=== PATIENT | male | born 1995 | race Caucasian/White ===

== ENCOUNTER 2023-09-26 01:01 | Emergency (ER) | payer SELFPAY ==
[2023-09-26 01:03] VITALS: BP 183/100
[2023-09-26 01:09] VITALS: BMI 28.1
[2023-09-26] MEDS: NSS 1000 IV ×2 (01:13→01:51)
--- NOTE | 2023-09-26 01:13 | ED.GENMED ---
History of Present Illness
General
Chief Complaint: Abdominal Symptoms
Source: patient
Exam Limitations: none
Time Seen by Provider: 09/26/23 01:03
Travel History
Have you had any contact with someone who has COVID-19?: No
Do you have any symptoms of coronavirus? Fever > 100 degrees, chills, cough, shortness of breath, sore throat, loss of taste or smell, muscle aches, or headache?: No
History of Present Illness
History of Present Illness:
This is a 28 year old male that comes in with c/o vomiting. States that he awoke around 12noon and stats that he started with vomiting.States that about every 20 min he felt he was vomiting. States that the last few times he thought there was blood
in the vomit so he called 911. Patient was given Zofran by EMS and states that he does not feel nauseated any more. States that he does smoke Marijuana and the last time was 4-5 o'clock and his last alcohol was 12midnigh. Denies any fever, chills,
chest pain, SOB, abd pain, diarrhea, headache, dizziness, urinary burning.
Past History
Past History
ED Past Medical History: HTN; Negative Hypercholesterolemia
ED Past Surgical History: None
Social History
Tobacco: Smoker (Cigars)
Alcohol: Daily (1/2 bottle Vodka )
Drug: Marijuana (Daily)
Personal: Single
Living: with family
Review of Systems
Review of Systems
All Other Systems: ROS reviewed and negative except as documented in HPI and ROS
Constitutional: Reports no symptoms; Denies fever or chills
EENT: Reports no symptoms
Respiratory: Reports no symptoms; Denies cough or trouble breathing
Cardiac: Reports no symptoms; Denies chest pain
ABD/GI: Reports nausea, vomiting and other (Thought there was blood in the emesis); Denies abdominal pain or diarrhea
: Reports no symptoms; Denies dysuria, frequency or urgency
Musculoskeletal: Reports no symptoms
Skin: Reports no symptoms
Neurological: Reports no symptoms; Denies dizzy or headache
Psychiatric: Reports no symptoms
Phy Exam
General Physical Exam
General Presentation: no apparent distress
General age: appears stated age
General Skin: warm and dry
General Habitus: normal
General Mental: alert and anxious
General Hydration: dry mucous membranes
ENT Exam
ENT Exam: TM's normal, pharynx normal and neck supple
Eye Exam
Eye Exam: EOMI
Cardiovascular Exam
Cardiovascular Exam: no edema, normal peripheral pulses and tachycardia
Pulmonary Exam
Pulmonary Exam: lungs clear, no respiratory distress, no rales, chest non tender, no crackles, no rhonchi, no wheezing and no cough
Gastrointestinal Exam
Gastrointestinal Exam: normal bowel sounds, non tender, soft, no organomegaly, no pulsatile mass and non distended
Musculoskeletal Exam
Musculoskeletal Exam: full ROM and no edema
Skin Exam
Skin Exam: normal color, warm/dry, no rash and no petechia
Psychiatric Exam
Psychiatric Exam: anxious
Course
Orders/Labs/Results
Orders:
Orders
09/26/23 01:11
0.9% Sodium Chloride 1000 ml [Nss] 1,000 ml IV BOLUS
09/26/23 01:12
Alcohol Urgent
Complete Blood Count/With Diff Urgent
Comprehensive Metabolic Panel Urgent
09/26/23 01:13
0.9% Sodium Chloride 1000 ml [Nss] 1,000 ml IV BOLUS
09/26/23 01:14
Pantoprazole [Protonix IV] 40 mg IV NOW STA
09/26/23 01:17
Ondansetron Injectable [Zofran] 4 mg IV NOW STA
09/26/23 01:18
Ondansetron Injectable [Zofran] 4 mg .ROUTE .STK-MED ONE
09/26/23 01:20
Add On- LAB Urgent
Tests Added?: Alcohol
09/26/23 01:45
Acetaminophen [Tylenol] 1,000 mg PO NOW STA
09/26/23 01:48
0.9% Sodium Chloride 1000 ml [Nss] 1,000 ml IV BOLUS
09/26/23 02:44
Basic Metabolic Panel Urgent
Abnormal Lab Results
09/26/23 09/26/23
01:12 02:44
WBC 22.9 H 10^3/uL
(4.8-10.8)
MCV 96.3 H fL
(80.0-94.0)
MCH 34.4 H pg
(27.0-31.0)
MPV 11.1 H fL
(7.4-10.4)
Abs Immat Gran (auto) 0.2 H 10^3/uL
(0-0.05)
Absolute Neuts (auto) 20.9 H 10^3/uL
(1.4-6.5)
Absolute Lymphs (auto) 0.8 L 10^3/uL
(1.2-3.4)
Absolute Monos (auto) 1.0 H 10^3/uL
(0.1-0.6)
Immature Gran % 0.8 H %
(0-0.5)
Neutrophils % 91.3 H %
(42.2-75.2)
Lymphocytes % 3.4 L %
(20.5-51.1)
Carbon Dioxide 12 L* mmol/L 15 L mmol/L
(22-30) (22-30)
Glucose 183 H mg/dl 150 H mg/dl
(70-99) (70-99)
Calcium 8.3 L D mg/dl
(8.4-10.2)
AST 123 H U/L
(17-59)
ALT 127 H U/L
(0-50)
Total Protein 8.8 H g/dl
(6.3-8.2)
Albumin 5.4 H g/dl
(3.5-5.0)
09/26/23 01:12
09/26/23 02:44
Leukocytosis, Carbon dioxide very low. Glucose nonfasting. Anion gap 26, AST/ALT elevation. total protein elevated. Albumin slightly elevated.
Carbon dioxide has improved after 2 liters of fluid, Glucose has come down. Anion gap is now 14, ALCOHOL NONE DETECTED.
Vital Signs
Initial and Last Documented VS:
Initial Vital Signs
Temp Pulse Resp BP Pulse Ox
97.6 F 123 18 183/100 96
09/26/23 01:03 09/26/23 01:03 09/26/23 01:03 09/26/23 01:03 09/26/23 01:03
Last Documented Vital Signs
Temp Pulse Resp BP Pulse Ox
97.6 F 126 24 159/94 97
09/26/23 01:03 09/26/23 04:00 09/26/23 04:00 09/26/23 04:00 09/26/23 01:37
MDM/Problems Addressed
Differential Diagnosis Includes:
Viral syndrome, esophageal varices, Alcoholic gastritis
MDM/Problems Addressed:
This is a 28 year old male that is brought in by ambulance with c/o vomiting. States that he started vomiting [id number] noon on Tuesday. States that he did smoke Marijuana and he was drinking. [place] that the last time he vomited he thought there was
blood there.
Will check labs, Give IV fluids, Protonix.
back nto see patient. Patient states that he is feeling much better. Explained to patient that her really needs help to stop his drinking. Will give patient a prescription for Protonix to help with any Gastrointestinal irritation from the alcohol.
Encouraged patient to increase his water intake to 8-8oz glasses daily and will also give patient a prescription for Zofran to help with any nausea, vomiting. Patient to follow up with the PCP. Return with any concerns
Chronic conditions affecting care:
NA
Acute Exacerbation and/or Progression of Chronic Illness:
NA
*Pulse Oximetry
Patient hypoxic: no
*EKG
Interpreted by ED Provider?: NA
Rate: EKG- N/A
*Check Clerk Interpretation
Rate: tachycardiac
Heart Rate: 122
Rhythm: sinus tachycardia
*Critical Care Note
Total Time (30-74mins, 75-104mins- exclusive of procedures): Not Applicable
ED Attending Note
-
Portions of this chart may have been created with voice recognition software.� Occasional wrong word or��sound alike� substitutions may have occurred due to the inherent limitations of voice recognition software.
Discharge Plan
Departure
Patient Disposition: Home (Routine Discharge)
Date of Disposition: 09/26/23
Time of Disposition: 03:57
Patient with high blood pressure during this ER visit?: Yes
Condition: Good
Covid-19: Not Applicable
Discharge Problem:
Nausea and vomiting
Instructions: Nausea and Vomiting, Adult (DC), BLOOD PRESSURE
Prescriptions:
New
pantoprazole [Protonix] 40 mg tablet,delayed release (DR/EC)
40 mg PO DAILY Qty: 15 0RF
ondansetron 4 mg tablet,disintegrating
4 mg PO Q8H PRN (Reason: nausea and vomiting) Qty: 10 0RF
Referrals:
NONE,* [Family Provider] -
Activity Restrictions/Additional Instructions:
As discussed, your blood work shows an elevation of the WBC. This is most likely due to dehydration and the stress of all the vomiting. Your liver enzymes are also significantly elevated due to your alcohol intake. YOU REALLY NEED TO GET HELP TO
STOP DRINKING SO YOU DON'T END UP IN LIVER FAILURE. Please follow up with the family doctor for recheck. YOU HAVE HAD 2 PRESCRIPTIONS SENT TO YOUR PHARMACY. THE ZOFRAN IS FOR NAUSEA AND THE PROTONIX WILL HELP COAT THE STOMACH. Please increase your
water intake to 8-8oz glasses daily. IF YOU HAVE ANY OTHER CONCERNS PLEASE RETURN TO THE EMERGENCY ROOM .
Interventions
Interventions:
*Risk Screen - Suicide Last Done: 09/26/23 01:03
*General Assessment Last Done: 09/26/23 01:03
*Neglect/Abuse Screening Last Done: 09/26/23 01:03
*ED COVID-19 Vaccine History Last Done: 09/26/23 01:03
DL-Goqlcj-Ktasiwvift Assessment Last Done: 09/26/23 01:10
[2023-09-26] MEDS: ZOFRAN 4 MG IV (01:20)
[2023-09-26 01:21] LABS: % Basophils 0.3 % (0-2); % Immature Granulocytes 0.8 % (0-0.5); % Lymphocytes 3.4 % (20.5-51.1); % Monocytes 4.2 % (1.7-9.3); % Neutrophils 91.3 % (42.2-75.2); Absolute Basophils 0.1 10^3/uL (0-0.2); Absolute Immature Granulocytes 0.2 10^3/uL (0-0.05); Absolute Lymphocytes 0.8 10^3/uL (1.2-3.4); Absolute Neutrophils 20.9 10^3/uL (1.4-6.5); Hematocrit 46.8 % (39.0-52.0); Hemoglobin 16.7 g/dL (13.0-18.0); Mean Corp Hgb Conc. 35.7 g/dL (33.0-37.0); Mean Corpuscular Hgb 34.4 pg (27.0-31.0); Mean Corpuscular Volume 96.3 fL (80.0-94.0); Mean Platelet Volume 11.1 fL (7.4-10.4); Nucleated Red Blood Cells % 0 % (-); Platelet Count 290 10^3/uL (130-400); Red Blood Cell Count 4.86 10^6/uL (4.70-6.10); Red Cell Dist. Width 11.9 % (11.5-14.5); White Blood Cell Count 22.9 10^3/uL (4.8-10.8)
[2023-09-26] MEDS: PROTONIX IV 40 MG IV (01:22)
--- NOTE | 2023-09-26 01:26 | EDRN ---
Pt clarified his last alcohol intake was midnight 25.5 hours ago. Pt says he has been drinking heavily since he was 22 years old. Pt has sought help for alcohol abuse in the past however he is not interested in help now. Pt is tremulous, states
he has been through alcohol detox previously and this is not it. Pt was dry heaving, given additional IV zofran and protonix. Pt given an ice cube to wet his mouth.
[2023-09-26 01:37] LABS: ALT (SGPT) 127 U/L (0-50); AST (SGOT) 123 U/L (17-59); Albumin 5.4 g/dl (3.5-5.0); Alkaline Phosphatase 104 U/L (38-126); Blood Urea Nitrogen 11 mg/dl (9-20); Carbon Dioxide 12 mmol/L (22-30); Chloride 101 mmol/L (98-107); Estimated Creatinine Clearance > 125 ml/min; Glucose 183 mg/dl (70-99); Potassium 4.6 mmol/L (3.5-5.1); Sodium 139 mmol/L (135-145); Total Bilirubin 1.2 mg/dl (0.2-1.3); Total Protein 8.8 g/dl (6.3-8.2); eGFR > 60.00
[2023-09-26] MEDS: TYLENOL 1000 MG PO (01:48)
[2023-09-26 01:58] LABS: Alcohol None Detected
[2023-09-26 02:00] VITALS: BP 159/93
[2023-09-26 03:00] VITALS: BP 141/86
[2023-09-26 03:11] LABS: Blood Urea Nitrogen 11 mg/dl (9-20); Calcium 8.3 mg/dl (8.4-10.2); Carbon Dioxide 15 mmol/L (22-30); Chloride 107 mmol/L (98-107); Estimated Creatinine Clearance > 125 ml/min; Glucose 150 mg/dl (70-99); Potassium 4.7 mmol/L (3.5-5.1); Sodium 136 mmol/L (135-145); eGFR > 60.00
[2023-09-26 04:00] VITALS: BP 159/94
== END 2023-09-26 04:12 | disposition home or self-care (01) ==
LOC: EMR 01:01
PROVIDERS: Clinical Nurse Specialist Family Health; EMERGENCY PHYSICIAN Emergency Medicine
DX: R11.2 Nausea with vomiting, unspecified (principal); I10 Essential (primary) hypertension; F17.290 Nicotine dependence, other tobacco product, uncomplicated
CPT/HCPCS: 99283; 96374; 96375; 96361; 80048; 80053; 82077; 85025

== ENCOUNTER 2024-01-12 09:13 | Emergency (ER) | payer SELFPAY ==
[2024-01-12 09:18] VITALS: BP 188/122
--- NOTE | 2024-01-12 09:39 | ED.GENMED ---
History of Present Illness
General
Chief Complaint: Withdrawal Symptoms
Time Seen by Provider: 01/12/24 09:27
Travel History
Have you had any contact with someone who has COVID-19?: No
Do you have any symptoms of coronavirus? Fever > 100 degrees, chills, cough, shortness of breath, sore throat, loss of taste or smell, muscle aches, or headache?: No
History of Present Illness
History of Present Illness:
28-year-old male with history of hypertension and alcohol abuse presents to the emergency department for evaluation of alcohol withdrawal. His last drink was yesterday morning roughly 24 hours prior to presentation. He states that he was
attempting to be admitted to [facility] due to past history with them, states they advised him to seek emergency medical evaluation for medical clearance. He reports tremors and diaphoresis as well as tactile skin disturbances.
Denies any history of alcohol withdrawal seizures. His last period of extended sobriety was greater than 1 year ago. Denies any other substance abuse.
Past History
Past History
ED Past Medical History: HTN; Negative Hypercholesterolemia
ED Past Surgical History: None
Social History
Tobacco: Smoker (Cigars)
Alcohol: Daily (1/2 bottle Vodka )
Drug: Marijuana (Daily)
Personal: Single
Living: with family
Review of Systems
Review of Systems
Allergies reviewed?: Yes
All Other Systems: ROS reviewed and negative except as documented in HPI and ROS
Phy Exam
Physical Exam
Physical Exam:
GEN: Diaphoretic, tremulous
HEENT: Oral mucosa moist, no scleral icterus
Cardiac: Tachycardic, regular
Lung: No respiratory distress, no tachypnea
MSK: No gross deformity or injuries
Skin: Good color, no pallor or jaundice, no rashes, profound diaphoresis
Neuro: AO x3, moves all extremities freely, generalized tremors at rest
Psych: Calm, cooperative, not responding to internal stimuli, no clear hallucinations
Course
Orders/Labs/Results
Orders:
Orders
01/12/24 09:32
Lactated Ringers [Lr] 1,000 ml IV BOLUS
Lorazepam [Ativan] 2 mg IV NOW STA
01/12/24 09:33
Electrocardiogram (*1) Urgent
Reason for Study: QTc Monitoring
EKG- Treatment ONCE
01/12/24 09:51
Alcohol Urgent
Complete Blood Count/With Diff Urgent
Comprehensive Metabolic Panel Urgent
Magnesium Urgent
01/12/24 10:00
0.9% Sodium Chloride 1000 ml [Nss] 1,000 ml Mvi, Adult [Multivitamin] 10 ml Thiamine Injection 100 mg IV 1,000 mls/hr
01/12/24 11:25
Magnesium Sulfate 2 Gram/50 ml [Magnesium Sulfate] 2 gram in 50 ml IV NOW
Abnormal Lab Results
01/12/24
09:51
WBC 16.6 H 10^3/uL
(4.8-10.8)
MCV 98.6 H fL
(80.0-94.0)
MCH 34.0 H pg
(27.0-31.0)
MPV 10.8 H fL
(7.4-10.4)
Abs Immat Gran (auto) 0.1 H 10^3/uL
(0-0.05)
Absolute Neuts (auto) 14.6 H 10^3/uL
(1.4-6.5)
Absolute Lymphs (auto) 1.1 L 10^3/uL
(1.2-3.4)
Absolute Monos (auto) 0.8 H 10^3/uL
(0.1-0.6)
Immature Gran % 0.7 H %
(0-0.5)
Neutrophils % 87.6 H %
(42.2-75.2)
Lymphocytes % 6.3 L %
(20.5-51.1)
Chloride 95 L mmol/L
(98-107)
Carbon Dioxide 21 L mmol/L
(22-30)
Glucose 128 H mg/dl
(70-99)
Magnesium 1.5 L mg/dl
(1.6-2.3)
AST 87 H U/L
(17-59)
ALT 64 H U/L
(0-50)
Total Protein 8.7 H g/dl
(6.3-8.2)
Albumin 5.4 H g/dl
(3.5-5.0)
01/12/24 09:51
01/12/24 09:51
Vital Signs
Initial and Last Documented VS:
Initial Vital Signs
Temp Pulse Resp BP Pulse Ox
98.8 F 137 18 188/122 100
01/12/24 09:18 01/12/24 09:18 01/12/24 09:18 01/12/24 09:18 01/12/24 09:18
Last Documented Vital Signs
Temp Pulse Resp BP Pulse Ox
98.3 F 103 22 121/86 95
01/12/24 11:19 01/12/24 12:45 01/12/24 12:45 01/12/24 12:45 01/12/24 12:45
MDM/Problems Addressed
MDM/Problems Addressed:
48-year-old male presents in acute alcohol withdrawal. He remained tachycardic and tremulous however is requesting discharge as he plans to sign himself into an inpatient detox and rehab facility in the [facility]. I have educated him that he is high
risk for discharge however he is willing to be discharged without established follow-up, given that he plans to enroll himself in an inpatient facility do not plan to provide him with benzodiazepines for withdrawal symptoms
*Critical Care Note
Total Time (30-74mins, 75-104mins- exclusive of procedures): Not Applicable
ED Attending Note
-
Portions of this chart may have been created with voice recognition software.� Occasional wrong word or��sound alike� substitutions may have occurred due to the inherent limitations of voice recognition software.
Discharge Plan
Departure
Patient Disposition: Home (Routine Discharge)
Date of Disposition: 01/12/24
Time of Disposition: 12:42
Patient with high blood pressure during this ER visit?: No
Discharge Problem:
Alcohol withdrawal
Instructions: Alcohol Withdrawal (DC)
Prescriptions:
No Action
acetaminophen [Tylenol Extra Strength] 500 mg Tablet
1,000 mg PO Q6H PRN (Reason: MILD PAIN)
loratadine [Claritin] 10 mg Tablet
10 mg PO DAILY PRN (Reason: ALLERGIES)
Referrals:
NONE,* [Family Provider] -
Interventions
Interventions:
*Risk Screen - Suicide Last Done: 01/12/24 09:18
*General Assessment Last Done: 01/12/24 09:18
*Neglect/Abuse Screening Last Done: 01/12/24 09:18
ED- Fall Risk Assessment Last Done: 01/12/24 12:52
*Nursing Disposition Last Done: 01/12/24 12:52
VG-Zpaccc-Mhesjofiup Assessment Last Done: 01/12/24 09:45
ED- Neurological Assessment Last Done: 01/12/24 10:35
ED-Psychological Assessment Last Done: 01/12/24 09:45
Discharge Date and Time
Discharge Date/Time: 01/12/24 12:52
Print Language: [id number]
[2024-01-12] MEDS: ATIVAN 2 MG IV (09:51)
[2024-01-12] MEDS: LR 1000 IV (09:51)
[2024-01-12 10:17] LABS: % Basophils 0.7 % (0-2); % Immature Granulocytes 0.7 % (0-0.5); % Lymphocytes 6.3 % (20.5-51.1); % Monocytes 4.7 % (1.7-9.3); % Neutrophils 87.6 % (42.2-75.2); Absolute Basophils 0.1 10^3/uL (0-0.2); Absolute Immature Granulocytes 0.1 10^3/uL (0-0.05); Absolute Lymphocytes 1.1 10^3/uL (1.2-3.4); Absolute Monocytes 0.8 10^3/uL (0.1-0.6); Absolute Neutrophils 14.6 10^3/uL (1.4-6.5); Hematocrit 50.5 % (39.0-52.0); Hemoglobin 17.4 g/dL (13.0-18.0); Mean Corp Hgb Conc. 34.5 g/dL (33.0-37.0); Mean Corpuscular Volume 98.6 fL (80.0-94.0); Mean Platelet Volume 10.8 fL (7.4-10.4); Nucleated Red Blood Cells % 0 % (-); Platelet Count 237 10^3/uL (130-400); Red Blood Cell Count 5.12 10^6/uL (4.70-6.10); Red Cell Dist. Width 11.9 % (11.5-14.5); White Blood Cell Count 16.6 10^3/uL (4.8-10.8)
[2024-01-12] MEDS: MULTIVITAMIN 1011 MG IV (10:24)
[2024-01-12] MEDS: MULTIVITAMIN 1011 ML IV (10:24)
[2024-01-12 10:26] LABS: ALT (SGPT) 64 U/L (0-50); AST (SGOT) 87 U/L (17-59); Albumin 5.4 g/dl (3.5-5.0); Alcohol 38 mg/dl; Alkaline Phosphatase 109 U/L (38-126); Blood Urea Nitrogen 12 mg/dl (9-20); Calcium 9.6 mg/dl (8.4-10.2); Carbon Dioxide 21 mmol/L (22-30); Chloride 95 mmol/L (98-107); Glucose 128 mg/dl (70-99); Magnesium 1.5 mg/dl (1.6-2.3); Sodium 138 mmol/L (135-145); Total Protein 8.7 g/dl (6.3-8.2); eGFR > 60.00
[2024-01-12 11:19] VITALS: BP 147/89
[2024-01-12] MEDS: MAGNESIUM SULFATE 50 IV (11:43)
[2024-01-12 12:45] VITALS: BP 121/86
== END 2024-01-12 12:52 | disposition home or self-care (01) ==
LOC: EMR 09:13
PROVIDERS: Physician Assistant; EMERGENCY PHYSICIAN Emergency Medicine
DX: F10.939 Alcohol use, unspecified with withdrawal, unspecified (principal); F17.290 Nicotine dependence, other tobacco product, uncomplicated; I10 Essential (primary) hypertension
CPT/HCPCS: 99283; 80053; 82077; 83735; 85025; 93005